=== PATIENT | male | born 1945 | race Caucasian/White ===

== ENCOUNTER 2022-12-03 07:25 | Day surgery (SDC) | payer MEDICARE, OTHER ==
[~2022-12-03] VITALS: Ht 172.7 cm; Wt 84.4 kg
[~2022-12-03 07:25] MED LIST: ADLT ASA LOW81 MG PO; ANTIVERT PO; AUGMENTIN875 MG PO; CHILD ASA81 MG OR; COLACE100 MG PO; CRESTOR10 MG OR; FINASTERIDE5 MG PO; LIPITOR40 MG PO; LISINOPRIL20 MG PO; NIACIN500 M2 OR; RAPAFLO8 MG OR; SLO-NIACIN500 MG PO; VITAMIN D1000 UNIT PO; WAX AU; ZESTRIL20 MG OR
[2022-12-03 09:40] VITALS: BP 129/91
== END 2022-12-03 10:08 | disposition home or self-care (01) ==
LOC: ENDO 07:25
PROVIDERS: ATTEND Internal Medicine Gastroenterology
PROC: 0DJD8ZZ Inspection of Lower Intestinal Tract, Via Natural or Artificial Opening Endoscopic (ICD-10-PCS; principal; 2022-12-03)
DX: K57.30 Diverticulosis of large intestine without perforation or abscess without bleeding (principal); K64.8 Other hemorrhoids; I10 Essential (primary) hypertension